=== PATIENT | female | born 1965 | race Caucasian/White ===

== ENCOUNTER → 2017-06-09 | Outpatient (CLI) | payer OTHER ==
[2017-06-09 13:39] LABS: LYMPH # 3.7 K/mm3 (0.7-4.5); LYMPH % 28.8 % (10-50.0)
[2017-06-09 14:21] LABS: BUN 11 mg/dL (7-18); GFR (ESTIMATED) 89 ML/MIN (59-)
== END ==
LOC: CARL-LAB 10:58
PROVIDERS: Internal Medicine Adolescent Medicine
DX: R53.83 Other fatigue (principal); E11.9 Type 2 diabetes mellitus without complications

== ENCOUNTER → 2017-06-10 | Outpatient (CLI) | payer OTHER ==
--- NOTE | 2017-06-10 13:35 | RADIOLOGY REPORT PS360 ---
HIP RT 2-3V W/PELVIS IF PERFOR HISTORY: SCIATICAright-sided hip and back pain. No trauma. Patient Age: 51 years: Female Ordering Physician: Thomas Siddiqui MD TECHNIQUE: AP frog-leg right hip along with AP pelvis. COMPARISON :No relevant studies. L-spine from today utilized FINDINGS No acute findings at the right hip. The femoral head and neck intact but there are hypertrophic ridging about the base of the normal head on right as well as left. Mild hypertrophy at the cap of the greater trochanter. Borderline narrowing superior medial joint space. On right. Likely subtle subchondral cystic changes surrounding both hips joints. Likely small osteochondral irregularity superior root right acetabulum at right hip AP pelvis. The sacrum and iliac bone intact. Both hips with degenerative changes. The left hip has a slight pistol-delinquency prevention social worker appearance to the femoral neck which can contribute to femoral acetabular impingement symptoms if present. Mild hypertrophy of the cap of left greater trochanter IMPRESSION: No fracture or acute findings. Moderate Degenerative changes of both hips .
--- NOTE | 2017-06-10 13:35 | RADIOLOGY REPORT PS360 ---
HIP RT 2-3V W/PELVIS IF PERFOR HISTORY: SCIATICAright-sided hip and back pain. No trauma. Patient Age: 51 years: Female Ordering Physician: Thomas Siddiqui MD TECHNIQUE: AP frog-leg right hip along with AP pelvis. COMPARISON :No relevant studies. L-spine from today utilized FINDINGS No acute findings at the right hip. The femoral head and neck intact but there are hypertrophic ridging about the base of the normal head on right as well as left. Mild hypertrophy at the cap of the greater trochanter. Borderline narrowing superior medial joint space. On right. Likely subtle subchondral cystic changes surrounding both hips joints. Likely small osteochondral irregularity superior root right acetabulum at right hip AP pelvis. The sacrum and iliac bone intact. Both hips with degenerative changes. The left hip has a slight pistol-food science technician appearance to the femoral neck which can contribute to femoral acetabular impingement symptoms if present. Mild hypertrophy of the cap of left greater trochanter IMPRESSION: No fracture or acute findings. Moderate Degenerative changes of both hips .
--- NOTE | 2017-06-10 13:38 | RADIOLOGY REPORT PS360 ---
LUMBAR SPINE 5 VIEWS HISTORY: SCIATICA no trauma. Back pain right hip pain. Patient Age: 51 years: Female Ordering Physician: Thomas Siddiqui MD TECHNIQUE: Five-view lumbar spine series COMPARISON :None FINDINGS The vertebral bodies are intact with no compression fractures. There is some minor sclerosis at superior endplate of L3 & L5 The disc spaces are fairly well-maintained throughout the lumbar spine only borderline narrowing at L4/5 posteriorly. . Developing marginal osteophyte formation throughout the lumbar spine most evident the left at L4/5 There are degenerative hypertrophic facet changes noted most evident L4/5 and L5/S1 to the right. Generous stool right colon. Psoas shadows clear. The moderate arthritic changes of both hips again noted IMPRESSION: . Developing degenerative changes lower L-spine . Most notable are the degenerative facet changes L4/5 and L5/S1, on right greater than left Vertebral bodies and disc spaces well-maintained. Only borderline disc space narrowing posteriorly at L3/4
== END ==
LOC: RAD 01:58
DX: M54.31 Sciatica, right side (principal)